=== PATIENT | female | born 1955 | race Two or more races ===

== ENCOUNTER → 2024-05-25 | Outpatient (CLI) | payer MEDICAID, SELFPAY ==
--- NOTE | 2024-05-25 16:42 | XR_ITS ---
Examination: Foot, right, 3 views Technique: AP, oblique, lateral views foot, 3 views Date and time of exam: May 25, 2024 at 1714 hrs. Indications: Onset right flank pain beginning one week ago no trauma. Findings: Significant osteopenia Mild osteoarthritis first metatarsophalangeal joint, interphalangeal joint first digit No fracture No cortical bone destruction 4 mm plantar 4 mm posterior bony calcaneal spurs Impression: Mild osteoarthritis first metatarsophalangeal joint and interphalangeal joint first digit Small plantar posterior bony calcaneal spurs
== END | disposition home or self-care (01) ==
LOC: CDIM 16:37
PROVIDERS: Referring Provider Physician Assistant; Visit Provider Physician Assistant
DX: M19.071 Primary osteoarthritis, right ankle and foot (principal); M77.31 Calcaneal spur, right foot
CPT/HCPCS: 73630

== ENCOUNTER 2024-09-15 05:45 | Day surgery (SDC) | payer MEDICAID, SELFPAY ==
--- NOTE | 2024-09-13 06:49 | EKG_ITS ---
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
[2024-09-13 11:45] VITALS: BMI 40.8
[2024-09-13 12:48] LABS: Basophils % (Auto) 0 % (0-2.5); Eosinophils # (Auto) 0.1 Thou/mm3 (0.0-0.5); Eosinophils % (Auto) 1 % (0-10); Hematocrit 41.5 % (36.0-46.0); Hemoglobin 14.8 g/dL (12.0-16.0); Immature Granulocytes % (Auto) 1 % (0-0); Immature Granulocytes Auto 0.05 Thou/mm3 (0.00-0.00); Lymphocytes # (Auto) 2.7 Thou/mm3 (1.0-4.8); Lymphocytes % (Auto) 33 % (10-50); Mean Corpuscular HGB Conc 35.7 g/dl (31.0-37.0); Mean Corpuscular Hemoglobin 29.4 pg (25.0-35.0); Mean Corpuscular Volume 83 fL (80-100); Monocytes # (Auto) 0.5 Thou/mm3 (0.0-0.8); Monocytes % (Auto) 6 % (0-12); Neutrophils # (Auto) 4.9 Thou/mm3 (1.8-7.7); Neutrophils % (Auto) 59 % (37-80); Nucleated Red Blood Cell % 0 /100 WBC (0); Platelet Count 197 Thou/mm3 (140-440); RDW Standard Deviation 39.2 fL (36.4-46.3); Red Blood Count 5.03 Miln/mm3 (4.00-5.20); White Blood Count 8.3 Thou/mm3 (3.6-11.0)
[2024-09-13 12:51] LABS: Partial Thromboplastin Time 28.5 Seconds (22.0-36.0); Prothrombin Time 11.1 Seconds (9.0-12.2)
[2024-09-13 12:55] LABS: Anion Gap 10 (7-16); Carbon Dioxide 29.2 mMol/L (20.0-31.0); Chloride 104 mMol/L (98-107); Potassium 4.4 mMol/L (3.4-5.1); Sodium 143 mMol/L (136-145)
[2024-09-13 12:56] LABS: Alanine Aminotransferase 13 U/L (10-49); Albumin, Serum 4.5 gm/dL (3.4-4.8); Albumin/Globulin Ratio 1.6 (1.2-2.2); Alkaline Phosphatase 95 U/L (46-116); BUN/Creatinine Ratio 17 Ratio (12-20); Blood Urea Nitrogen 12 mg/dL (9-23); Calcium 9.7 mg/dL (8.3-10.6); Calcium (Corrected) 9.7 mg/dL (8.5-10.1); Creatinine (Component) 0.7 mg/dL (0.6-1.3); Estimated Creatinine Clearance 75.9 mL/min (>60); Globulin 2.8 gm/dL (2.3-3.5); Glucose 109 mg/dL (74-106); Osmolality,Calculated 285 (275-295); Total Protein 7.3 gm/dL (5.7-8.2); eGFR > 60 See Note
[2024-09-15] VITALS (8 sets, daily range): BP systolic 127–146; BP diastolic 60–88; PULSE 73–82; RESP 13–19; TEMP 36.4–36.8; O2SAT 95–99; BMI 41.5
--- NOTE | 2024-09-15 09:47 | ESOP_ITS ---
Date of Procedure 09/15/24 Pre Op Diagnosis Symptomatic varicose veins both lower extremities Post Op Diagnosis Same as preop diagnosis Procedure Varicose vein excision bilateral lower extremities through 18 incision in the left leg and 16 incisions on the right Findings All marked veins were successfully removed or disrupted Procedure Description With the patient standing in the preop area all varicose veins to be removed were carefully marked with a sharpie pen. The patient was then brought to the operating room and general anesthesia was induced. A timeout was performed. The veins were removed by making a small skin clyde in the marked areas with a #11 blade then bluntly enlarging the incision with a small mosquito clamp and se quentially excising or disrupting the veins. When all marked veins in both lower extremities were either successfully removed or disrupted hemostasis was obtained. The leg was washed and the incisions were reapproximated with Steri- Strips. The leg was then wrapped with gauze Kerlix and an Murphy wrap. The patient woke up from anesthesia and was moved to recovery in stable condition having tolerated the procedure well Anesthesia other (Laryngeal mask anesthesia) Pathology / specimen Other (Bilateral lower extremity varicose veins) Estimated Blood Loss 75 Condition Stable Disposition PACU Surgeon Liam Noland MD Surgical Staff Operation Date: 09/15/24 08:30 Case Staff Anesthesiologist: Herman Vallejo RN First Assistant: Ghazala Hill
--- NOTE | 2024-09-15 09:53 | SUR.PHASEI ---
0953: pt received from [place] via [facility]. received report from Charlie, Student Chandu NANCE RN and Dr. Vallejo. pt awake and alert. denies any pain or discomfort. dressing to bilateral legs clean, dry and intact. positive CMS: cap refill less than 2 seconds, positive pulse and able to wiggle toes when ask.
[2024-09-15] MEDS: MORPHINE SULF INJ 10 MG/ML VIAL 3 MG IVP (10:12)
--- NOTE | 2024-09-15 10:20 | SUR.PHASEII ---
1020: pt awake and alert. given pain medication as ordered. dressing to bilateral legs clean, dry and intact. positive CMS: cap refill less than 2 seconds, positive pulse and able to wiggle toes when ask.
[2024-09-15] MEDS: ACETAMINOPHEN IVPB 1,000 MG/100 ML VIAL 250 MG IV (10:22)
--- NOTE | 2024-09-15 10:32 | SUR.PHASEII ---
1032: pt able to drink juice without any issues.
--- NOTE | 2024-09-15 11:04 | SUR.PHASEII ---
1104: pt discharge to home via wheelchair. pt alert and oriented to name, place and time.. denies any pain or discomfort. dressing to bilateral legs clean, dry and intact. positive CMS: cap refill less than 2 seconds, positive pulse and able to wiggle toes when ask. discharge instructions given to daughter and patient. patient preferred daughter to be the devulcanizer charger for her, all questions were answered. all belongings brought gave back to patient.
== END 2024-09-15 11:04 | disposition home or self-care (01) ==
PROVIDERS: Anesthesiology; PCP Physician Assistant; Referring Provider Surgery Vascular Surgery; Visit Provider Surgery Vascular Surgery
PROC: (CPT 37785; principal; 2024-09-15 08:30)
DX: I83.813 Varicose veins of bilateral lower extremities with pain (principal); Z01.810 Encounter for preprocedural cardiovascular examination
CPT/HCPCS: 37766; 36415; 80053; 85025; 85610; 85730; 93005; A4217; A4649; J0131; J2250; J2270; J2405; J2704; J2765; J3010; A9270

== ENCOUNTER 2025-04-01 11:19 | Emergency (ER) | payer MEDICAID, SELFPAY ==
[2025-04-01 11:24] VITALS: BMI 36.6
[2025-04-01 11:50] VITALS: BP 142/88; PULSE 94; RESP 17; TEMP 36.8; O2SAT 96
--- NOTE | 2025-04-01 11:54 | XR_ITS ---
Examination: CT brain head without contrast. 2-D sagittal coronal reconstructions Date and time of exam: April 01, 2025, 1258 hours INDICATIONS: Worsening headache 3 days CTDI: vol (mGy): 55.5 DLP: (mGycm): 1096 Technique: Multiple CT axial sections of the brain have been obtained, 5 mm slice thickness. Contrast has not been administered. 2-D sagittal, coronal reconstructions have been obtained Low dose protocols were performed. One or more of the following dose reduction techniques were used; automated exposure control, adjustment of the mA and/or KV according to patient size, use of iterative reconstruction technique. Findings: No significant ventricular enlargement. Intra-axial or extra-axial hemorrhage density is not seen. No mass effect or midline shift Basal cisterns are not remarkable. Fourth ventricle is midline. Cranial vault intact. Impression: Negative for acute hemorrhage, mass effect or midline shift Prominent chronic frontal ethmoid sinusitis
[2025-04-01] MEDS: METOCLOPRAMIDE 5 MG TABLET 10 MG PO (12:03)
--- NOTE | 2025-04-01 12:03 | EDNOTE_ITS ---
ED General RME/HPI General Chief complaint: Eye Problems Stated complaint: NECK PAIN RADIATING TO L FACE X2 DAYS; EYE ISSUE Time Seen by Provider: 04/01/25 11:28 Arrival date/time: 04/01/25 11:19 69-year-old female patient came in for evaluation regarding headache. Onset of symptoms for the last 2 days is worsening headache, on the left occipital area, radiating to the neck, and face. Patient denies any upper or lower extremity weakness. Denies any other complaints. Denies any trauma or fall denies any fever. No medication was taken prior to ER visit. Related Data Home Medications ?Medication ?Instructions ?Recorded ?Confirmed atorvastatin 10 mg tablet 40 mg PO QDAY 01/09/1809/15 lisinopril 5 mg tablet 5 mg PO QDAY 01/09/18 dapagliflozin propaned 5 1 tab PO QDAY 09/15/2409/15 mg-metformin ER 1,000 mg tablet, ext rel 24hr (Xigduo XR) ergocalciferol (vitamin D2) 1,250 1,250 mcg PO QWEEK 0 09/15/24 09/15/24 mcg (50,000 unit) capsule Previous Rx's ?Medication ?Instructions ?Recorded rizatriptan 10 mg disintegrating 10 mg PO Q2H PRN migr delphine headache 04/01/25 tablet (Maxalt-FLIGHT PHYSICIAN) #20 tabs Allergies Allergy/AdvReac Type Severity Reaction Status Date / Time No Known Allergies Allergy Verified 04/01/25 11:29 Review of Systems Review of Systems Narrative Review of Systems: Review of system reviewed and within normal limits except mentioned in HPI ED Exam Narrative Physical exam: VITAL SIGNS: Reviewed. GENERAL APPEARANCE: Alert and interactive, follows commands, no acute distress, HEAD AND FACE: Non-traumatic. ENT: PERRL, pink conjunctivitis, eyelid no trauma, Mucous membrane moist. NECK: Supple, nontender, no nuchal rigidity. CHEST: No tenderness, no crepitus, no paradoxical movement, no retractions. LUNGS: Clear, well ventilated, symmetric, no rales, no wheezing, no ronchi, no stridor, good breath sounds bilaterally. HEART: Regular rate, regular rhythm, no murmur, no gallops. ABDOMEN: Soft, positive bowel sounds, nondistended, no guarding, nontender, no rebound, no masses, RECTAL: Deferred. GENITAL: Deferred. NEUROLOGICAL: Gross motor function intact sensory function intact, Appropriate for age. MUSCULOSKELETAL: low back nontender, full range of motion. EXTREMITIES: Nontender, full range of motion. SKIN: Color pink, dry, no rash, no lacerations, no abrasions, no contusions. LYMPHATICS: Deferred. Course Quality Measures none Orders Category Date Time Status CT head/brain wo con Stat Exams 04/01/25 11:54 Completed DiphenhydrAMINE [Benadryl] Med 04/01/25 11:54 Discontinued 25 mg PO X1 ONE Ketorolac Inj [Toradol Inj] Med 04/01/25 11:54 Discontinued 30 mg IM X1 ONE Metoclopramide [Reglan] Med 04/01/25 11:54 Discontinued 10 mg PO X1 ONE Vital Signs Vital signs: Vital Signs Temperature 98.3 F 04/01/25 11:50 Pulse Rate 94 04/01/25 11:50 Respiratory Rate 17 04/01/25 11:50 Blood Pressure 142/88 H 04/01/25 11:50 Pulse Oximetry (%) 96 04/01/25 11:50 Oxygen Delivery Method Room Air 04/01/25 11:50 Discharge Plan Plan Patient Disposition: HOME (Self Care) Discharge Disposition comment: Stable Prescriptions/Referrals Prescriptions/Med Rec: New rizatriptan [Maxalt-FLIGHT PHYSICIAN] 10 mg tablet,disintegrating 10 mg PO Q2H PRN (Reason: migraine headache) Qty: 20 0RF Rx Instructions: 10 mg x 1 as needed for headache maximum 3 tablets/day No Action atorvastatin 10 mg Tablet 40 mg PO QDAY lisinopril 5 mg Tablet 5 mg PO QDAY ergocalciferol (vitamin D2) 1,250 mcg (50,000 unit) capsule 1,250 mcg PO QWEEK dapaglifloz propaned-metformin [Xigduo XR] 5-1,000 mg tablet, IR - ER, biphasic 24hr 1 tab PO QDAY Referrals: Juan Carmona [Primary Care Provider] - In 1 week Problem List Clinical Impression: Headache Patient/Caregiver Discharge Instructions Discharge Activity: activity as tolerated Education Materials: Self-Care for Headaches Additional Instructions: Thank you for the opportunity for serving you today. You are stable for discharged . You are advised to: Follow-up with your PCP in 1 to 2 days Return to ED for worsening of symptoms Increase oral fluids Take medication as prescribed Print Language: Tamazight Stand Alone Forms: Carmen Award Info., Patient Portal Info Letter MADDY/WILL Supervising Physician MADDY/WILL Supervising Physician: MD Nacho MDM Narrative MDM hospital course (for use when minimal MDM required): 69-year-old female patient came in for evaluation regarding headache. Onset of symptoms for the last 2 days is worsening headache, on the left occipital area, radiating to the neck, and face. Patient denies any upper or lower extremity weakness. Denies any other complaints. Denies any trauma or fall denies any fever. No medication was taken prior to ER visit. CT scan of the head came back unremarkable. Patient was given Benadryl, Toradol IM, and Reglan with complete resolution of headache. Clinical Information Provided by: family Medical Records reviewed None Meds/Rx considered, not ordered None Medication Administration(s) Medication Administration History Discontinued Medications Diphenhydramine HCl (Diphenhydramine 25 Mg Capsule) 25 mg PO X1 ONE Stop: 04/01/25 11:55 Last Admin: 04/01/25 12:04 Dose: 25 mg Documented By: Ketorolac Tromethamine (Ketorolac Inj 30 Mg/Ml Vial) 30 mg IM X1 ONE Stop: 04/01/25 11:55 Last Admin: 04/01/25 12:05 Dose: 30 mg Documented By: Metoclopramide HCl (Metoclopramide 5 Mg Tablet) 10 mg PO X1 ONE Stop: 04/01/25 11:55 Last Admin: 04/01/25 12:03 Dose: 10 mg Documented By: Diagnosis Differential Diagnosis ED Complaint MDM: Headache , intracranial tumor or intracranial bleed
[2025-04-01] MEDS: KETOROLAC INJ 30 MG/ML VIAL IM (12:05)
--- NOTE | 2025-04-01 16:12 | PC.NURSE ---
PT LEFT WITH OUT DISCHARGE INSTRUCTIONS; PT CALLED FROM TELEPHONE & GAVE VERBAL INSTRUCTIONS REGARDING DISCHARGE PAPERS. PT VERBALIZED UNDERSTANDING OF DISCHARGE AND RETURN TO ED INSTRUCTIONS.
== END 2025-04-01 16:14 | disposition home or self-care (01) ==
PROVIDERS: Emergency Provider Emergency Medicine; PCP Physician Assistant
DX: R51.9 Headache, unspecified (principal)
CPT/HCPCS: 70450; 96372; 99283; J1885; A9270